=== PATIENT | female | born 1955 | race Caucasian/White ===

== ENCOUNTER 2016-12-27 00:45 | Emergency (ER) | payer OTHER ==
[~2016-12-27] VITALS: Ht 160 cm; Wt 99.3 kg
[~2016-12-27 00:45] MED LIST: THYROID MED; [UNRECOGNIZED DRUG - OTHER]; no meds
[2016-12-27 00:50] VITALS: BP_SYST 160
[2016-12-27] MEDS ORDERED: KETOROLAC TROMETHAMINE 60 MG/2 ML VIAL IM ONE (01:15)
[2016-12-27 01:56] LABS: BASOPHILS # (AUTO) 0.1 K/uL (0.0-0.2); BASOPHILS % (AUTO) 0.8 % (0.0-2.0); EOSINOPHILS # (AUTO) 0.1 K/uL (0.0-0.4); EOSINOPHILS % (AUTO) 1.5 % (0.0-4.0); HEMATOCRIT 39.3 % (36-48); LYMPHOCYTES # (AUTO) 2.9 K/uL (1.0-5.5); LYMPHOCYTES % (AUTO) 35.2 % (20.5-51.5); MEAN CORPUSCULAR HEMOGLOBIN 30 pg (27-31); MEAN CORPUSCULAR HGB CONC 33 % (32-36); MEAN CORPUSCULAR VOLUME 90 fL (79.0-98.0); MONOCYTES # (AUTO) 0.8 K/uL (0.0-1.0); MONOCYTES % (AUTO) 9.7 % (1.7-9.3); NEUTROPHILS # (AUTO) 4.4 K/uL (1.8-7.7); NEUTROPHILS % (AUTO) 52.8 % (40.0-70.0); PLATELET COUNT (AUTO) 236 K/uL (130-430); RED BLOOD CELL COUNT(AUTO) 4.37 MIL/uL (4.2-6.2); RED CELL DISTRIBUTION WIDTH 11.9 % (9.0-15.0); WHITE BLOOD COUNT (AUTO) 8.3 K/uL (4.8-10.8)
[2016-12-27 02:04] LABS: CALCIUM 9.6 mg/dL (8.4-11.0); CHLORIDE 107 mmol/L (98-107); CREATININE 0.59 mg/dL (0.55-1.30); GLUCOSE 116 mg/dL (70-99); POTASSIUM 4.1 mmol/L (3.5-5.1); SODIUM SERUM 138 mmol/L (136-145); UREA NITROGEN, BLOOD 21 mg/dL (8-21)
[2016-12-27 02:08] LABS: PROTHROMBIN TIME 10.6 SECS (9.5-12.5)
[2016-12-27 02:09] LABS: ALANINE AMINOTRANSFERASE 34 U/L (12-78); ASPARTATE AMINOTRANSFERASE 26 U/L (10-37); TOTAL BILIRUBIN 0.4 mg/dL (0.0-1.0); TOTAL PROTEIN, SERUM 7.6 g/dL (6.4-8.3)
[2016-12-27 02:14] LABS: ANION GAP < 3 (5-15); GFR AFRICAN AMERICAN 134 mL/min (>90)
[2016-12-27 02:28] VITALS: BP_SYST 137
== END 2016-12-27 02:28 | disposition home or self-care (01) ==
LOC: SED 00:45
DX: M43.6 Torticollis (principal); I10 Essential (primary) hypertension; E03.9 Hypothyroidism, unspecified; I48.91 Unspecified atrial fibrillation; Z88.1 Allergy status to other antibiotic agents
CPT/HCPCS: 36415; 80053; 83880; 84484; 85025; 85379; 85610; 85730; 93005; 96372; 99285; J1885

== ENCOUNTER 2020-01-24 23:15 | Emergency (ER) | payer BC, OTHER ==
[~2020-01-24] VITALS: Ht 162.6 cm; Wt 113.4 kg
[2020-01-24 23:15] VITALS: BP_SYST 159
--- NOTE | 2020-01-24 23:15 | NUR ---
Patient to ER bed 02 to gown for evaluation. Side rails up. Report given to LAURA Barcenas.
--- NOTE | 2020-01-24 23:25 | NUR ---
Pt came to the ER c/o irregular hr causing abdominal discomfort as well x today at 9pm. Pt reports noticing irregular HR after swimming 85 laps which may have caused her irregular HR. Pt states hx of "episodic" AFIB for 18 yrs taking Propafenone only when irregular hr. Cardio physician is Dr. Porter. Pt states hx of HTN currently not taking any prescribed medications for HTN but is taking herbal supplements. Denies SOB, chest pain, n/v/d.
--- NOTE | 2020-01-24 23:59 | NUR ---
ER at bedside examining patient.
[2020-01-25] MEDS ORDERED: NACL 0.9% 1,000 ML IV ONE ×2 (00:15→02:45)
[2020-01-25] MEDS ORDERED: ACETAMINOPHEN/CODEINE 300 MG-30 MG TABLET PO ONE (00:15)
[2020-01-25 00:39] LABS: BASOPHILS # (AUTO) 0.1 K/uL (0.0-0.2); BASOPHILS % (AUTO) 0.9 % (0.0-2.0); EOSINOPHILS # (AUTO) 0.2 K/uL (0.0-0.4); EOSINOPHILS % (AUTO) 1.9 % (0.0-4.0); HEMATOCRIT 40.2 % (36-48); HEMOGLOBIN 13.3 g/dL (12.0-16.0); LYMPHOCYTES # (AUTO) 3.3 K/uL (1.0-5.5); MEAN CORPUSCULAR HEMOGLOBIN 31 pg (27-31); MEAN CORPUSCULAR HGB CONC 33 % (32-36); MEAN CORPUSCULAR VOLUME 93 fL (79.0-98.0); MONOCYTES # (AUTO) 0.8 K/uL (0.0-1.0); MONOCYTES % (AUTO) 9.4 % (1.7-9.3); NEUTROPHILS # (AUTO) 4.4 K/uL (1.8-7.7); NEUTROPHILS % (AUTO) 49.8 % (40.0-70.0); PLATELET COUNT (AUTO) 262 K/uL (130-430); RED BLOOD CELL COUNT(AUTO) 4.34 MIL/uL (4.2-6.2); RED CELL DISTRIBUTION WIDTH 12.5 % (9.0-15.0); WHITE BLOOD COUNT (AUTO) 8.8 K/uL (4.8-10.8)
--- NOTE | 2020-01-25 00:50 | NUR ---
Pt resting, symmetric chest rise and fall, no respiratory distress.
[2020-01-25 00:51] LABS: ANION GAP 8 (5-15); CALCIUM 8.7 mg/dL (8.4-11.0); CHLORIDE 104 mmol/L (98-107); CREATININE 0.56 mg/dL (0.55-1.30); GLUCOSE 142 mg/dL (70-99); POTASSIUM 4.2 mmol/L (3.5-5.1); SODIUM SERUM 141 mmol/L (136-145); UREA NITROGEN, BLOOD 18 mg/dL (8-21)
[2020-01-25 01:09] LABS: ALANINE AMINOTRANSFERASE 48 U/L (12-78); ALBUMIN 3.5 g/dL (3.4-4.8); ASPARTATE AMINOTRANSFERASE 31 U/L (10-37); PHOSPHORUS 3.2 mg/dL (2.7-4.5); TOTAL BILIRUBIN 0.3 mg/dL (0.0-1.0)
[2020-01-25 01:12] LABS: GFR AFRICAN AMERICAN 141 mL/min (>90)
[2020-01-25] MEDS ORDERED: DILTIAZEM HCL 25 MG/5 ML VIAL IVP ONE (01:45)
--- NOTE | 2020-01-25 02:00 | NUR ---
Pt given Cardizem, tolerated well, no change in HR, still tachycardiac.
[2020-01-25] MEDS ORDERED: METOPROLOL TARTRATE 5 MG/5 ML VIAL IVP ONE (02:45)
--- NOTE | 2020-01-25 03:00 | NUR ---
Dr. Serrano bedside for pt update. Pt states "feeling better."
[2020-01-25 04:00] VITALS: BP_SYST 114
--- NOTE | 2020-01-25 04:00 | NUR ---
Patient given written and verbal discharge instructions and verbalizes understanding. ER MD discussed with patient the results and treatment provided. Patient in stable condition. ID arm band removed. IV catheter removed intact and dressing applied, no active bleeding. Patient educated on pain management and to follow up with PMD. Pain Scale 0/10 Opportunity for questions provided and answered.
== END 2020-01-25 04:00 | disposition home or self-care (01) ==
LOC: SED 23:15
DX: R00.2 Palpitations (principal); I10 Essential (primary) hypertension; E03.9 Hypothyroidism, unspecified; Z88.1 Allergy status to other antibiotic agents
CPT/HCPCS: 36415; 71045; 80053; 83735; 84100; 84484; 85025; 85379; 93005; 96374; 96375; 99285; J3490 ×2; J7030

== ENCOUNTER 2020-06-03 03:13 | Emergency (ER) | payer BC ==
[~2020-06-03] VITALS: Ht 160 cm; Wt 110.2 kg
[2020-06-03 03:24] VITALS: BP_SYST 182
--- NOTE | 2020-06-03 03:24 | NUR ---
Pt ambulatory to bed 7 for evaluation
[2020-06-03] MEDS ORDERED: METO-442 PO (03:35)
--- NOTE | 2020-06-03 03:38 | NUR ---
ER at bedside examining patient.
[2020-06-03] MEDS ORDERED: KETOROLAC TROMETHAMINE 30 MG VIAL IVP ONE (03:45)
[2020-06-03] MEDS ORDERED: ONDANSETRON HCL 4 MG/2 ML VIAL IVP ONE (03:45)
--- NOTE | 2020-06-03 03:50 | NUR ---
PT A&O X4 FROM HOME C/O OF RIGHT LOWER ABDOMINAL PAIN THAT STARTED YESTERDAY 2100. PT STATES SHE IS HAVING AN "APPENDICITIS ATTACK AND IS HAVING A REALLY REALLY HARD TIME". PT RATES PAIN 7 OUT OF 10 & IS NAUSEOUS. PT ALSO REPORTS HAVING A HEADACHE. DENIES DIARRHEA, CONSTIPATION, VOMITING. TOOK A TYLENOL 1 HR AGO.
--- NOTE | 2020-06-03 03:55 | NUR ---
# 20 gauge angiocath placed to LAC. Use of asceptic technique. Opsite placed over site. Blood return noted. Blood for lab drawn from site. Flushed with 10 cc of normal saline. No evidence of infiltration noted. Patient tolerated well.
[2020-06-03 04:03] LABS: BILIRUBIN,URINE NEGATIVE (NEGATIVE); BLOOD, URINE NEGATIVE (NEGATIVE); CLARITY/URINE SL CLOUDY (CLEAR); COLOR,URINE YELLOW (YELLOW); GLUCOSE,URINE NEGATIVE (NEGATIVE); KETONES,URINE NEGATIVE (NEGATIVE); LEUKOCYTE ESTERASE ,URINE TRACE (NEGATIVE); NITRITE, URINE POSITIVE (NEGATIVE); PROTEIN URINE TRACE (NEGATIVE); UROBILINOGEN,URINE 0.2 (0.2-1.0)
--- NOTE | 2020-06-03 04:12 | NUR ---
Patient transported to radiology via WHEELCHAIR, accompanied by
--- NOTE | 2020-06-03 04:27 | NUR ---
PATIENT RETURNED FROM RADIOLOGY. PT TOLERATED WELL.
[2020-06-03 04:29] LABS: BACTERIA,URINE MODERATE /HPF (None Seen)
[2020-06-03 04:30] LABS: CALCIUM OXALATE CRYSTALS,UR 30-50 /HPF (None Seen)
--- NOTE | 2020-06-03 04:33 | NUR ---
patient states pain is still a 7 out of 10. md aware.
[2020-06-03 04:43] LABS: BASOPHILS # (AUTO) 0.2 K/uL (0.0-0.2); EOSINOPHILS # (AUTO) 0.1 K/uL (0.0-0.4); EOSINOPHILS % (AUTO) 1.3 % (0.0-4.0); HEMATOCRIT 41.2 % (36-48); HEMOGLOBIN 13.8 g/dL (12.0-16.0); LYMPHOCYTES % (AUTO) 35.9 % (20.5-51.5); MEAN CORPUSCULAR HEMOGLOBIN 31 pg (27-31); MEAN CORPUSCULAR HGB CONC 34 % (32-36); MEAN CORPUSCULAR VOLUME 94 fL (79.0-98.0); MONOCYTES # (AUTO) 0.6 K/uL (0.0-1.0); MONOCYTES % (AUTO) 7.6 % (1.7-9.3); NEUTROPHILS # (AUTO) 4.5 K/uL (1.8-7.7); NEUTROPHILS % (AUTO) 53.2 % (40.0-70.0); PLATELET COUNT (AUTO) 253 K/uL (130-430); RED BLOOD CELL COUNT(AUTO) 4.39 MIL/uL (4.2-6.2); RED CELL DISTRIBUTION WIDTH 12.6 % (9.0-15.0); WHITE BLOOD COUNT (AUTO) 8.5 K/uL (4.8-10.8)
--- NOTE | 2020-06-03 04:44 | NUR ---
pt medicated per md orders. pt tolerated well.
[2020-06-03] MEDS ORDERED: cefTRIAXone 1 GM IVPB PREMIX 50 ML IV ONE (04:45)
[2020-06-03] MEDS ORDERED: NITROFURANTOIN MONOHYD/M-CRYST 100 MG CAPSULE PO ONE (04:45)
[2020-06-03] MEDS ORDERED: MORPHINE 2 MG/ML INJ. SYRINGE IVP ONE (04:45)
[2020-06-03 04:53] LABS: CREATININE 0.55 mg/dL (0.55-1.30); POTASSIUM 3.4 mmol/L (3.5-5.1)
[2020-06-03 04:58] LABS: ALBUMIN 3.6 g/dL (3.4-4.8); TOTAL BILIRUBIN 0.4 mg/dL (0.0-1.0)
[2020-06-03] MEDS ORDERED: MAGNESIUM CITRATE 300 ML ORAL SOLUTION PO ONE (05:15)
--- NOTE | 2020-06-03 05:18 | NUR ---
patient states pain decreased to a 1 out of 10.
[2020-06-03 05:22] LABS: CALCIUM 9.1 mg/dL (8.4-11.0)
--- NOTE | 2020-06-03 05:22 | NUR ---
patient on the phone with daughter to call for a ride home.
[2020-06-03 05:29] VITALS: BP_SYST 136
--- NOTE | 2020-06-03 05:29 | NUR ---
Patient given written and verbal discharge instructions and verbalizes understanding. ER MD discussed with patient the results and treatment provided. Patient in stable condition. ID arm band removed. IV catheter removed intact and dressing applied, no active bleeding. Rx of nitrofuratoin given. Patient educated on pain management and to follow up with PMD. Pain Scale 1/10. Opportunity for questions provided and answered. Medication side effect fact sheet provided.
== END 2020-06-03 05:29 | disposition home or self-care (01) ==
LOC: SED 03:13
DX: K59.00 Constipation, unspecified (principal); R10.31 Right lower quadrant pain; I48.91 Unspecified atrial fibrillation; I10 Essential (primary) hypertension; E03.9 Hypothyroidism, unspecified; Z88.1 Allergy status to other antibiotic agents; Z88.2 Allergy status to sulfonamides
CPT/HCPCS: 36415; 74176; 80053; 81000; 85025; 87086; 96374; 96375; 99284; J1885; J2270; J2405

== ENCOUNTER 2022-12-24 23:06 | Emergency (ER) | payer BC, OTHER ==
[~2022-12-24] VITALS: Ht 160 cm; Wt 124.7 kg
[~2022-12-24 23:06] MED LIST changes: +METO-442 PO; -THYROID MED; -[UNRECOGNIZED DRUG - OTHER]; -no meds
[2022-12-24 23:30] VITALS: BP_SYST 185
--- NOTE | 2022-12-24 23:30 | NUR ---
Patient triaged and placed in waiting room. VSS and patient appears in no acute distress at this time. Awaiting available bed, and MD notified of need for MSE.
--- NOTE | 2022-12-24 23:54 | NUR ---
ER examining patient in the .
--- NOTE | 2022-12-25 01:47 | NUR ---
Patient given written and verbal discharge instructions by Dr Barraza in the [facility] and verbalizes understanding. ER MD discussed with patient the results and treatment provided. Patient in stable condition. ID arm band removed. no Rx of given. Patient educated on pain management and to follow up with PMD. Pain Scale 4/10. Opportunity for questions provided and answered. Medication side effect fact sheet provided.
[2022-12-25 01:52] VITALS: BP_SYST 169
== END 2022-12-25 01:47 | disposition home or self-care (01) ==
LOC: SED 23:06
DX: M54.32 Sciatica, left side (principal); M79.662 Pain in left lower leg; I10 Essential (primary) hypertension; Z88.1 Allergy status to other antibiotic agents; Z88.2 Allergy status to sulfonamides; Z79.899 Other long term (current) drug therapy
CPT/HCPCS: 93971; 99284

== ENCOUNTER 2022-12-28 00:08 | Emergency (ER) | payer BC, OTHER ==
[~2022-12-28] VITALS: Ht 161.3 cm; Wt 123.4 kg
[2022-12-28 00:13] VITALS: BP_SYST 177
[2022-12-28] MEDS ORDERED: NOR10 PO (01:07)
[2022-12-28 01:14] VITALS: BP_SYST 158
[2022-12-28] MEDS ORDERED: ACETAMINOPHEN 500 MG TABLET PO ONE (01:30)
== END 2022-12-28 01:14 | disposition home or self-care (01) ==
LOC: SED 00:08
DX: I10 Essential (primary) hypertension (principal); Z88.1 Allergy status to other antibiotic agents; Z88.2 Allergy status to sulfonamides; Z79.899 Other long term (current) drug therapy
CPT/HCPCS: 99283

== ENCOUNTER 2023-04-18 08:25 | Emergency (ER) | payer BC, OTHER ==
[~2023-04-18] VITALS: Ht 160 cm; Wt 118.4 kg
[~2023-04-18 08:25] MED LIST changes: +NOR10 PO
[2023-04-18] MEDS ORDERED: DRON400T PO (09:26)
[2023-04-18] MEDS ORDERED: RIVA20TA PO (09:26)
[2023-04-18] MEDS ORDERED: DILT240C95 PO (09:26)
[2023-04-18] MEDS ORDERED: TYC3 PO (09:26)
[2023-04-18 09:27] VITALS: BP_SYST 179; PULSE 87; RESP 16; TEMP 97.9; O2SAT 95
[2023-04-18 10:15] LABS: BASOPHILS # (AUTO) 0.1 K/uL (0.0-0.2); BASOPHILS % (AUTO) 0.9 % (0.0-2.0); EOSINOPHILS # (AUTO) 0.1 K/uL (0.0-0.4); EOSINOPHILS % (AUTO) 1.2 % (0.0-4.0); HEMATOCRIT 42.2 % (36-48); LYMPHOCYTES # (AUTO) 2.1 K/uL (1.0-5.5); LYMPHOCYTES % (AUTO) 24.4 % (20.5-51.5); MEAN CORPUSCULAR HEMOGLOBIN 31 pg (27-31); MEAN CORPUSCULAR HGB CONC 33 % (32-36); MEAN CORPUSCULAR VOLUME 92 fL (79.0-98.0); MONOCYTES # (AUTO) 0.6 K/uL (0.0-1.0); MONOCYTES % (AUTO) 7.3 % (1.7-9.3); NEUTROPHILS # (AUTO) 5.7 K/uL (1.8-7.7); NEUTROPHILS % (AUTO) 66.2 % (40.0-70.0); PLATELET COUNT (AUTO) 291 K/uL (130-430); RED BLOOD CELL COUNT(AUTO) 4.59 MIL/uL (4.2-6.2); RED CELL DISTRIBUTION WIDTH 12.5 % (9.0-15.0); WHITE BLOOD COUNT (AUTO) 8.6 K/uL (4.8-10.8)
[2023-04-18 10:40] LABS: ANION GAP 8 (5-15); CALCIUM 9.3 mg/dL (8.4-11.0); CARBON DIOXIDE 29 mmol/L (23-29); CHLORIDE 101 mmol/L (98-107); CREATININE 0.63 mg/dL (0.55-1.30); GFR AFRICAN AMERICAN 121 mL/min (>90); GLUCOSE 127 mg/dL (74-106); POTASSIUM 4.2 mmol/L (3.5-5.1); SODIUM SERUM 138 mmol/L (136-145); UREA NITROGEN, BLOOD 17 mg/dL (8-21)
[2023-04-18 10:45] LABS: ALANINE AMINOTRANSFERASE 51 U/L (12-78); ALBUMIN 3.6 g/dL (3.4-4.8); ASPARTATE AMINOTRANSFERASE 35 U/L (10-37); TOTAL BILIRUBIN 0.6 mg/dL (0.0-1.0); TOTAL PROTEIN, SERUM 8.6 g/dL (6.4-8.3)
[2023-04-18 10:50] LABS: ABG O2 SAT% ESTIMATE 93.6 % (94.0-100.0); BLOOD GAS BASE EXCESS 1.9 mmol/L (-3.0-3.0); BLOOD GAS PCO2 43.5 mmHg (35.0-45.0); BLOOD GAS PO2 67.4 mmHg (75.0-100.0)
[2023-04-18 10:52] LABS: GFR NON AFRICAN-AMERICAN 100 mL/min (>90)
[2023-04-18] MEDS ORDERED: NACL 0.9% 1,000 ML IV ONE (11:00)
[2023-04-18] MEDS ORDERED: ONDANSETRON HCL 4 MG/2 ML VIAL IVP ONE (11:00)
[2023-04-18 12:03] LABS: ALLEN'S TEST POSITIVE (P)
[2023-04-18] MEDS ORDERED: ACETAMINOPHEN 500 MG TABLET PO ONE (12:15)
[2023-04-18] MEDS ORDERED: ONDA-8 TL (13:58)
[2023-04-18 14:40] VITALS: BP_SYST 159; PULSE 82; RESP 16; TEMP 98; O2SAT 97
== END 2023-04-18 14:45 | disposition home or self-care (01) ==
LOC: SED 08:25
DX: R00.2 Palpitations (principal); R20.2 Paresthesia of skin; R11.0 Nausea; I10 Essential (primary) hypertension; Z88.1 Allergy status to other antibiotic agents; Z88.2 Allergy status to sulfonamides; Z79.899 Other long term (current) drug therapy
CPT/HCPCS: 99285; 96374; 71045; 96361; 80053; 85025; 84484; 36415; 93005; 36600; 82803; J2405; J7030

== ENCOUNTER 2024-05-22 11:18 | Emergency (ER) | payer BC, OTHER ==
[~2024-05-22] VITALS: Ht 160 cm; Wt 115.7 kg
[2024-05-22 11:18] VITALS: BP_SYST 157; PULSE 110; RESP 18; TEMP 97.8; O2SAT 98
[~2024-05-22 11:18] MED LIST changes: +DILT240C95 PO; +DRON400T PO; -METO-442 PO; +ONDA-8 TL; +RIVA20TA PO; +TYC3 PO
[2024-05-22 12:13] LABS: BASOPHILS # (AUTO) 0.1 K/uL (0.0-0.2); BASOPHILS % (AUTO) 0.7 % (0.0-2.0); EOSINOPHILS # (AUTO) 0.1 K/uL (0.0-0.4); EOSINOPHILS % (AUTO) 1.3 % (0.0-4.0); HEMATOCRIT 43.6 % (36-48); HEMOGLOBIN 14.2 g/dL (12.0-16.0); LYMPHOCYTES % (AUTO) 37.7 % (20.5-51.5); MEAN CORPUSCULAR HEMOGLOBIN 30 pg (27-31); MEAN CORPUSCULAR HGB CONC 33 % (32-36); MEAN CORPUSCULAR VOLUME 91 fL (79.0-98.0); MONOCYTES # (AUTO) 0.6 K/uL (0.0-1.0); MONOCYTES % (AUTO) 7.9 % (1.7-9.3); NEUTROPHILS # (AUTO) 4.2 K/uL (1.8-7.7); NEUTROPHILS % (AUTO) 52.4 % (40.0-70.0); PLATELET COUNT (AUTO) 280 K/uL (130-430); RED CELL DISTRIBUTION WIDTH 12.8 % (9.0-15.0); WHITE BLOOD COUNT (AUTO) 7.9 K/uL (4.8-10.8)
[2024-05-22] MEDS: NACL 0.9% 1,000 ML IV ONE (12:19)
[2024-05-22] MEDS: ASPIRIN 81 MG TAB.CHEW PO ONE (12:20)
[2024-05-22 13:05] LABS: ANION GAP 9 (5-15); CALCIUM 9.6 mg/dL (8.4-11.0); CARBON DIOXIDE 29 mmol/L (23-29); CHLORIDE 103 mmol/L (98-107); CREATININE 0.57 mg/dL (0.55-1.30); GFR AFRICAN AMERICAN 136 mL/min (>90); GLUCOSE 116 mg/dL (74-106); SODIUM SERUM 141 mmol/L (136-145); UREA NITROGEN, BLOOD 20 mg/dL (8-21)
[2024-05-22 13:08] LABS: GFR NON AFRICAN-AMERICAN 112 mL/min (>90)
[2024-05-22] MEDS: ACETAMINOPHEN 325 MG TABLET PO ONE (14:23)
[2024-05-22 14:39] VITALS: BP_SYST 137; PULSE 100; RESP 18; TEMP 97.8; O2SAT 98
== END 2024-05-22 14:42 | disposition home or self-care (01) ==
LOC: SED 11:18
DX: I48.91 Unspecified atrial fibrillation (principal); R00.2 Palpitations; R07.89 Other chest pain; R09.89 Other specified symptoms and signs involving the circulatory and respiratory systems; I10 Essential (primary) hypertension; E03.9 Hypothyroidism, unspecified; Z88.0 Allergy status to penicillin; Z88.2 Allergy status to sulfonamides; Z79.01 Long term (current) use of anticoagulants; Z79.899 Other long term (current) drug therapy
CPT/HCPCS: 99285; 96360; 71045; 80048; 83880; 83735; 85025; 84484; 36415; 93005; J7030